=== PATIENT | male | born 1960 | race Caucasian/White ===

== ENCOUNTER 2024-05-25 09:32 | Outpatient (CLI) | payer OTHER | END 2024-05-25 09:33 | disposition home or self-care (01) | LOC: SCSMRI 09:32 | PROVIDERS: ATTEND Family Medicine Sports Medicine | DX: S86.192 Other injury of other muscle(s) and tendon(s) of posterior muscle group at lower leg level, left leg (principal); S80.12XD Contusion of left lower leg, subsequent encounter ==